=== PATIENT | male | born 1970 | race African-American/Black ===

== ENCOUNTER 2023-10-08 17:48 | Emergency (ER) | payer MEDICAID ==
[~2023-10-08] VITALS: Ht 177.8 cm; Wt 89.0 kg
[2023-10-08 18:01] VITALS: O2SAT 100
[2023-10-08] MEDS ORDERED: AMOX-494 PO (20:26)
[2023-10-08] MEDS ORDERED: IBUP-2029 MT (20:26)
[2023-10-08] MEDS: IBUPROFEN 600MG TABLET PO STA (20:33)
[2023-10-08 20:34] VITALS: BP 131/86; PULSE 76; RESP 16; TEMP 97.7
== END 2023-10-08 20:35 | disposition home or self-care (01) ==
LOC: ER 17:48
DX: R51.9 Headache, unspecified (principal); Z98.818 Other dental procedure status
CPT/HCPCS: 99283